=== PATIENT | male | born 1945 | race Caucasian/White ===

== ENCOUNTER 2017-01-15 18:51 | Observation (INO) | payer OTHER, BC ==
[2017-01-15 19:08] VITALS: BMI 27.9
--- NOTE | 2017-01-15 20:00 | PDOC ---
History of Present Illness - General Chief Complaint: Head/Neck problem Stated Complaint: BUMP TO HEAD Time Seen by Provider: 01/15/17 19:52 History Source: Patient, Spouse Exam Limitations: No Limitations - History of Present Illness Initial Comments: 01/15/17 20:06 Patient was at [employer] today, and walked into glass wall sustaining a contusion and superficial abrasion to his left mid for head. There was no LOC, patient continued to watch the performance, used ice pack which helped resolve much of the swelling, and came now approximately 6 hours later for evaluation of head injury. Patient takes an aspirin, and had some questionable liver issues that is resolving. Denies mental status changes, denies any other injury. was with patient states his behavior has been unchanged Timing/Duration: 4-6 hours Severity: mild, moderate Past History - Travel Traveled outside of the country in the last 30 days: No Close contact w/someone who was outside of country & ill: No - Past Medical History Allergies/Adverse Reactions: Allergies Allergy/AdvReac Type Severity Reaction Status Date / Time No Known Allergies Allergy Verified 01/15/17 18:58 Home Medications: Ambulatory Orders Cholecalciferol (Vitamin D3) [Vitamin D3 -] 1,000 unit PO DAILY 08/07/15 Fenofibrate Nanocrystallized [Tricor] 145 mg PO DAILY 08/07/15 Tadalafil [Cialis] 20 mg PO DAILY 08/07/15 Pantoprazole Sodium [Protonix -] 40 mg PO DAILY #30 tablet.ec 08/10/15 Anemia: No Asthma: No Cancer: No Cardiac Disorders: Yes (MITRAL VALVE REPAIR) CVA: No COPD: No CHF: No Dementia: No Diabetes: No GI Disorders: Yes (H/O CARRILLO'S ESOPHAGUS,DIAPHRAGMATIC HERNIA,BENIGN NEOPLASM COLON;ULCER/PE) Disorders: No HTN: Yes Hypercholesterolemia: No Liver Disease: Yes (CHRONIC NONALCOHOLIC LIVER DISEASE) Seizures: No Thyroid Disease: No - Surgical History Abdominal Surgery: No Appendectomy: No Cardiac Surgery: Yes (MITRAL VALVE REPAIR) Cholecystectomy: No Lung Surgery: No Neurologic Surgery: No Orthopedic Surgery: Yes (ROTATOR CUFF) - Psycho/Social/Smoking Cessation Hx Anxiety: No Suicidal Ideation: No Smoking History: Never smoked Number of Cigarettes Smoked Daily: 0 Hx Alcohol Use: Yes (OCC) Drug/Substance Use Hx: No Substance Use Type: None Hx Substance Use Treatment: No Review of Systems - Review of Systems Able to Perform ROS?: Yes Is the patient limited Kinyarwanda proficient: Yes Constitutional: Yes: Symptoms Reported, See HPI, Malaise HEENTM: Yes: See HPI. No: Symptoms Reported, Eye Pain (has left pupil irregularity secondary to multiple surgeries and macular degeneration and retinal detachment.), Recent change in vision, Nose Congestion Respiratory: Yes: See HPI. No: Symptoms reported Musculoskeletal: Yes: See HPI. No: Symptoms Reported, Back Pain Neurological: Yes: See HPI. No: Symptoms reported, Headache, Numbness, Paresthesia, Unsteady Gait All Other Systems: Reviewed and Negative *Physical Exam - Vital Signs Last Vital Signs Temp Pulse Resp BP Pulse Ox 98.8 F 76 19 156/95 95 01/15/17 18:58 01/15/17 18:58 01/15/17 18:58 01/15/17 18:58 01/15/17 18:58 - Physical Exam Comments: 01/15/17 20:08 General Appearance: Yes: Nourished, Appropriately Dressed, Apparent Distress, Mild Distress HEENT: positive: EOMI, TMs Normal (no hemotympanum, no drainage from nose or ears, states of skull fracture), Other (superficial abrasion and hematoma to face/ upper left forehead/ no crepitus or stepoff. No orbital pain / crepitus/ no evidence of fracture ). negative: GRAHAM (has irregularity to left pupil by history), Nasal Congestion, Rhinorrhea, Sinus Tenderness Neck: positive: Supple. negative: Tender, Trachea midline Respiratory/Chest: positive: Lungs Clear, Normal Breath Sounds. negative: Chest Tender Cardiovascular: positive: Regular Rate Gastrointestinal/Abdominal: positive: Normal Bowel Sounds, Flat, Soft, Increased Bowel Sounds. negative: Tender, Guarding Musculoskeletal: positive: Normal Inspection ( ). negative: CVA Tenderness, Decreased Range of Motion Extremity: positive: Normal Inspection. negative: Normal Capillary Refill Integumentary: positive: Normal Color, Bruising Neurologic: positive: associate manager affiliate marketing II-XII NML intact, Fully Oriented, Alert, Normal Mood/ Affect, Normal Response, Motor Strength 5/5. negative: Abnormal Cranial NS ED Treatment Course - LABORATORY CBC & Chemistry Diagram: 01/16/17 06:20 01/16/17 00:09 - RADIOLOGY Radiology Studies Ordered: Category Date Time Status HEAD CT WITHOUT CONTRAST [CT] Stat CT Scan 01/15/17 20:00 Ordered Medical Decision Making - Medical Decision Making 01/15/17 22:54 CT report repeated per request of [facility] to visualize frontal are, repeat cont to visualize a questionable area of frontal lobe. Discussed with pateint and need for admit to [facility] to have neuro evaluation/ and repeat twesting in AM> Understands plan, Dr Rodriguez introduced and will proceed with further eval/ treatmetn *DC/Admit/Observation/Transfer Diagnosis at time of Disposition: Head injury due to trauma Qualifiers: Encounter type: initial encounter Qualified Code(s): S09.90XA - Unspecified injury of head, initial encounter - Discharge Dispostion Disposition: HOME Condition at time of disposition: Improved Admit: Yes - Patient Instructions
[2017-01-15 23:29] LABS: BASOPHIL 0.5 % (0-2.0); EOSINOPHIL 2.7 % (0-4.5); MCH 27.8 pg (25.7-33.7); MEAN CELL VOLUME 84.1 fl (80-96); MEAN PLT VOLUME 8.4 fl (7.5-11.1); NEUTROPHILS 59.6 % (42.8-82.8); PLATELET COUNT 200 K/MM3 (134-434); WHITE BLOOD COUNT 8.2 K/mm3 (4.0-10.0)
[2017-01-15 23:34] LABS: URINE APPEARANCE CLEAR; URINE BILIRUBIN NEGATIVE (NEGATIVE); URINE BLOOD NEGATIVE (NEGATIVE); URINE COLOR LTYELLOW; URINE GLUCOSE (UA) NEGATIVE (NEGATIVE); URINE KETONE NEGATIVE (NEGATIVE); URINE LEUK ESTERASE NEGATIVE (NEGATIVE); URINE NITRITE NEGATIVE (NEGATIVE); URINE PROTEIN NEGATIVE (NEGATIVE); URINE UROBILINOGEN NEGATIVE E.U./dl (0.2-1.0)
[2017-01-15 23:42] LABS: INR 1.05 (0.82-1.09); PROTHROMBIN TIME (PATIENT) 11.6 SEC (9.98-11.88)
[2017-01-16 01:10] LABS: ALBUMIN 3.9 g/dl (3.4-5.0); CALCIUM 8.7 mg/dL (8.5-10.1)
[2017-01-16 01:19] LABS: BILIRUBIN,TOTAL 0.4 mg/dL (0.2-1.0); COCKROFT - GAULT 68.59; CREATININE 1.2 mg/dL (0.7-1.3); TOT PROT 6.8 g/dl (6.4-8.2)
--- NOTE | 2017-01-16 02:13 | PDOC ---
*Physical Exam - Vital Signs Last Vital Signs Temp Pulse Resp BP Pulse Ox 98.8 F 76 19 156/95 95 01/15/17 18:58 01/15/17 18:58 01/15/17 18:58 01/15/17 18:58 01/15/17 18:58 ED Treatment Course - LABORATORY CBC & Chemistry Diagram: 01/15/17 23:04 01/16/17 00:09 - ADDITIONAL ORDERS Additional order review: Laboratory Results 01/16/17 01/15/17 01/15/17 00:09 23:10 23:04 INR Sodium 143 Potassium 4.5 Chloride 108 H Carbon Dioxide 22 Anion Gap 13 BUN 25 H D Creatinine 1.2 Creat Clearance w eGFR 59.35 Random Glucose 126 H Calcium 8.7 Total Bilirubin 0.4 AST 75 H ALT 56 Alkaline Phosphatase 90 Total Protein 6.8 Albumin 3.9 Urine Color Ltyellow Urine Appearance Clear Urine pH 5.0 Urine Protein Negative Urine Glucose (UA) Negative Urine Ketones Negative Urine Blood Negative Urine Nitrite Negative Urine Bilirubin Negative Urine Urobilinogen Negative Ur Leukocyte Esterase Negative Blood Type O POSITIVE Antibody Screen Negative 01/15/17 01/15/17 23:04 23:04 INR 1.05 Sodium Cancelled Potassium Cancelled Chloride Cancelled Carbon Dioxide Cancelled Anion Gap Cancelled BUN Cancelled Creatinine Cancelled Creat Clearance w eGFR Cancelled Random Glucose Cancelled Calcium Cancelled Total Bilirubin Cancelled AST Cancelled ALT Cancelled Alkaline Phosphatase Cancelled Total Protein Cancelled Albumin Cancelled Urine Color Urine Appearance Urine pH Urine Protein Urine Glucose (UA) Urine Ketones Urine Blood Urine Nitrite Urine Bilirubin Urine Urobilinogen Ur Leukocyte Esterase Blood Type Antibody Screen 01/15/17 23:04 RBC 5.49 MCV 84.1 MCHC 33.0 RDW 17.0 H D MPV 8.4 Neutrophils % 59.6 Lymphocytes % 29.1 Monocytes % 8.1 Eosinophils % 2.7 Basophils % 0.5 - RADIOLOGY Radiology Studies Ordered: Category Date Time Status CHEST X-RAY PORTABLE* [RAD] Stat Radiology 01/16/17 00:19 Taken Medical Decision Making - Medical Decision Making 01/16/17 02:06 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 This is at the same level as the left frontal scalp hematoma pt has no headache,no focal neuro deficits. He is ambulating with ease conversant PMH kowalski' s esophagus,nonalcoholic liver disease meds asa 81mg,vit D, tricor 145, cialis,protonix cbc -normal platelets comp-gkucose 126, ast 75 ,cr=1.2 case discussed hospitalist and pt will be ADMITTED TO [facility] for MRI in morning, neuro checks - *DC/Admit/Observation/Transfer Diagnosis at time of Disposition: Head injury due to trauma Qualifiers: Encounter type: initial encounter Qualified Code(s): S09.90XA - Unspecified injury of head, initial encounter - Discharge Dispostion Condition at time of disposition: Stable Admit: Yes - Referrals - Post Discharge Activity
--- NOTE | 2017-01-16 02:30 | PN ---
<Cynthia De León - Last Filed: 01/16/17 02:29> Teaching Attending Note Name of Resident: Estrella Quesada ATTENDING PHYSICIAN STATEMENT I saw and evaluated the patient. I reviewed the resident's note and discussed the case with the resident. I agree with the resident's findings and plan as documented. SUBJECTIVE: OBJECTIVE: ASSESSMENT AND PLAN: <Ignacia Hua - Last Filed: 01/16/17 04:20> Teaching Attending Note ATTENDING PHYSICIAN STATEMENT I saw and evaluated the patient. I reviewed the resident's note and discussed the case with the resident. I agree with the resident's findings and plan as documented. SUBJECTIVE: 74 yo M with a PMHx of HLD, mitral valve repair, kowalski's esophagus, non- alcoholic liver disease who presents after walking into a glass wall earlier today. Patient presented six hours after initial injury. Denies headache or changes in vision. Patient notes that his L eye fixed and dilated from previous tennis accident unrelated to todays trauma. OBJECTIVE: Last Vital Signs Temp Pulse Resp BP Pulse Ox 98.8 F 76 19 156/95 95 01/15/17 18:58 01/15/17 18:58 01/15/17 18:58 01/15/17 18:58 01/15/17 18:58 GENERAL: Awake, alert, and fully oriented, in no acute distress HEENT: L pupil fixed and dilated at 2 mm. R pupil reactive to light. R orbital hematoma. R forehead 1 mm abrasion. Moist mucosa. No JVD LUNGS: No distress, speaks full sentences, clear to auscultation bilaterally HEART: Regular rate and rhythm, normal S1 and S2, no murmurs, rubs or gallops, peripheral pulses normal and equal bilaterally. ABDOMEN: Soft, nontender, normoactive bowel sounds. No guarding, no rebound. No masses EXTREMITIES: Normal inspection, Normal range of motion, no edema. No clubbing or Cyanosis. NEUROLOGICAL: Cranial nerves II through XII grossly intact. Normal speech, normal gait, no focal sensorimotor deficits SKIN: Warm, Dry, normal turgor, no rashes or lesions noted. CBCD WBC 8.2 K/mm3 (4.0-10.0) D 01/15/17 23:04 RBC 5.49 M/mm3 (4.00-5.60) 01/15/17 23:04 Hgb 15.2 GM/dL (11.7-16.9) D 01/15/17 23:04 Hct 46.2 % (35.4-49) 01/15/17 23:04 MCV 84.1 fl (80-96) 01/15/17 23:04 MCHC 33.0 g/dl (32.0-35.9) 01/15/17 23:04 RDW 17.0 % (11.9-15.9) H D 01/15/17 23:04 Plt Count 200 K/MM3 (134-434) 01/15/17 23:04 MPV 8.4 fl (7.5-11.1) 01/15/17 23:04 CMP Sodium 143 mmol/L (136-145) 01/16/17 00:09 Potassium 4.5 mmol/L (3.5-5.1) 01/16/17 00:09 Chloride 108 mmol/L (98-107) H 01/16/17 00:09 Carbon Dioxide 22 mmol/L (21-32) 01/16/17 00:09 Anion Gap 13 (8-16) 01/16/17 00:09 BUN 25 mg/dL (7-18) H D 01/16/17 00:09 Creatinine 1.2 mg/dL (0.7-1.3) 01/16/17 00:09 Creat Clearance w eGFR 59.35 (>60) 01/16/17 00:09 Calcium 8.7 mg/dL (8.5-10.1) 01/16/17 00:09 Total Bilirubin 0.4 mg/dL (0.2-1.0) 01/16/17 00:09 AST 75 U/L (15-37) H 01/16/17 00:09 ALT 56 U/L (12-78) 01/16/17 00:09 Alkaline Phosphatase 90 U/L (45-117) 01/16/17 00:09 Total Protein 6.8 g/dl (6.4-8.2) 01/16/17 00:09 Albumin 3.9 g/dl (3.4-5.0) 01/16/17 00:[address] 8:11 PM FINDINGS: 1. There is a small focus of increased density in the left frontal region (image 16, series 36 axial images). A small focus of subarachnoid hemorrhage cannot be excluded. This is at the same level of the left frontal scalp hematoma. Repeat imaging through this region with thin slices (3 mm) may be helpful for further evaluation. Alternatively repeat imaging with a different angulation of the CT gantry may be helpful. There is no evidence of significant mass effect. There are chronic lacunar infarcts in the right basal ganglia. 2. Ventricular size is concordant with the degree of atrophy. 3. The visualized portions of the orbits, paranasal and mastoid sinuses are unremarkable. 4. No evidence of fracture. 5. Left frontal scalp hematoma. Head CT 9:41 PM FINDINGS: 1. Again noted is the small focus of increased density in the left frontal region (image 22, series of 37 axial images and image 13, series of 32 sagittal reformatted images). A small focus of intracranial hemorrhage in this region cannot entirely be excluded. This is at the same level as the left frontal scalp hematoma. There is no other evidence of intracranial hemorrhage. There is a lacunar infarct in the right basal ganglia that appears to be chronic. 2. Ventricular size is concordant with the degree of atrophy. 3. The visualized portions of the orbits, paranasal and mastoid sinuses are unremarkable. 4. No evidence of fracture. 5. Left frontal scalp hematoma ASSESSMENT AND PLAN: 74 yo M with a PMHx of HLD, mitral valve repair, kowalski's esophagus, chronic alcoholic liver disease presents after walking into glass found to have possible small intracranial hemorrhage. 1.) Head injury -? intracranial hemorrhage not clear on CT -MRI brain in AM -Neurology consult -Repeat CBC -Coags -Type and screen DVT ppx -Low risk -Ambulate Place in observation Documentation is prepared by Ignacia Hua acting as medical equipment sales for Cynthia De León D.O.
--- NOTE | 2017-01-16 02:44 | HP ---
CHIEF COMPLAINT: " i walked into glass door" PCP: HISTORY OF PRESENT ILLNESS: This is a 71 yo M with PMH of barrets esophagus, diaphragmatic hernia, nonalcoholic liver disease f/u by outpatient gi, colon polyps, mitral valse prolapse s/p ring repair and rotator cuff surgery, who presents after having walked through a glass door while at [employer]. He suffered a mild forehead abrasion/contusion, w/o LOC or fall. He continued enjoying the performance and appeared at [facility] for check up 6 hours after the incident. He states the accident occurred because the rodrigo vas very clean and transparent and denies prodrome of confusion, dizziness, loc or loss of motor function. He currently denies h/a, n/v. He denies chest pain, palpitations, sob, cought, and pain, diarrhea, dysuria. Of note, he suffered trauma to L eye causing vision impairment and fixed pupil. ER course was notable for: (1)labs (2)CXR (3)Head CT Recent Travel: denies PAST MEDICAL HISTORY: as above PAST SURGICAL HISTORY: as above Social History: lives at home with family Smoking: denies Alcohol:1 drink/week Drugs: denies Family History: HTN Allergies No Known Allergies Allergy (Verified 01/15/17 18:58) HOME MEDICATIONS: Home Medications Medication Instructions Recorded Aspirin [Ecotrin] 81 mg PO DAILY 08/07/15 Cholecalciferol (Vitamin D3) 1,000 unit PO DAILY 08/07/15 [Vitamin D3 -] Fenofibrate Nanocrystallized 145 mg PO DAILY 08/07/15 [Tricor] Tadalafil [Cialis] 20 mg PO DAILY 08/07/15 Pantoprazole Sodium [Protonix -] 40 mg PO DAILY #30 tablet.ec 08/10/15 REVIEW OF SYSTEMS CONSTITUTIONAL: Absent: fever, chills, diaphoresis, generalized weakness HEENT: Absent: rhinorrhea, nasal congestion, throat pain CARDIOVASCULAR: Absent: chest pain, syncope, palpitations, irregular heart rate, lightheadedness , peripheral edema RESPIRATORY: Absent: cough, shortness of breath GASTROINTESTINAL: Absent: abdominal pain, abdominal distension, nausea, vomiting, diarrhea, constipation GENITOURINARY: Absent: dysuria MUSCULOSKELETAL: Absent: back pain, neck pain SKIN: Absent: rash, itching, pallor HEMATOLOGIC/IMMUNOLOGIC: Absent: easy bleeding, easy bruising ENDOCRINE: Absent: unexplained weight gain, unexplained weight loss, heat intolerance, cold intolerance NEUROLOGIC: Absent: headache, focal weakness or paresthesias, dizziness, unsteady gait, seizure, mental status changes, bladder or bowel incontinence PSYCHIATRIC: Absent: anxiety PHYSICAL EXAMINATION Vital Signs - 24 hr 01/15/17 18:58 Temperature 98.8 F Pulse Rate 76 Respiratory 19 Rate Blood Pressure 156/95 O2 Sat by Pulse 95 Oximetry (%) GENERAL: Awake, alert, and fully oriented, in no acute distress. HEAD: Normal with no signs of trauma. EYES: R pupil round and reactive to light, L pupil fixed due to old trauma, extraocular movements intact, sclera anicteric, L eye syrrounding echymosess and mildly injected conjunctiva. No lid lag. EARS, NOSE, THROAT: Moist mucous membranes. NECK: supple without JVD LUNGS: Breath sounds equal, clear to auscultation bilaterally HEART: Regular rate and rhythm, normal S1 and S2 ABDOMEN: Soft, nontender, not distended, normoactive bowel sounds, No hepatomegaly MUSCULOSKELETAL: No CVA tenderness. UPPER EXTREMITIES: 2+ pulses, warm, well-perfused. LOWER EXTREMITIES: 2+ pulses, warm, well-perfused. No calf tenderness. No peripheral edema. NEUROLOGICAL: Cranial nerves II-XII intact. Normal speech. sensation intact. strentght 5/5 in all extremities, 1+ brachial reflexes b/l PSYCHIATRIC: Cooperative. Good eye contact. Appropriate mood and affect. SKIN: Warm, dry, small abrasion/contusion on forehead above L eye with echymosis over L eyelid Laboratory Results - last 24 hr 01/15/17 01/15/17 01/15/17 23:04 23:04 23:04 WBC 8.2 D RBC 5.49 Hgb 15.2 D Hct 46.2 MCV 84.1 MCHC 33.0 RDW 17.0 H D Plt Count 200 MPV 8.4 Neutrophils % 59.6 Lymphocytes % 29.1 Monocytes % 8.1 Eosinophils % 2.7 Basophils % 0.5 INR 1.05 Sodium Cancelled Potassium Cancelled Chloride Cancelled Carbon Dioxide Cancelled Anion Gap Cancelled BUN Cancelled Creatinine Cancelled Creat Clearance w eGFR Cancelled Random Glucose Cancelled Calcium Cancelled Total Bilirubin Cancelled AST Cancelled ALT Cancelled Alkaline Phosphatase Cancelled Total Protein Cancelled Albumin Cancelled Urine Color Urine Appearance Urine pH Urine Protein Urine Glucose (UA) Urine Ketones Urine Blood Urine Nitrite Urine Bilirubin Urine Urobilinogen Ur Leukocyte Esterase Blood Type Antibody Screen 01/15/17 01/15/17 01/16/17 23:04 23:10 00:09 WBC RBC Hgb Hct MCV MCHC RDW Plt Count MPV Neutrophils % Lymphocytes % Monocytes % Eosinophils % Basophils % INR Sodium 143 Potassium 4.5 Chloride 108 H Carbon Dioxide 22 Anion Gap 13 BUN 25 H D Creatinine 1.2 Creat Clearance w eGFR 59.35 Random Glucose 126 H Calcium 8.7 Total Bilirubin 0.4 AST 75 H ALT 56 Alkaline Phosphatase 90 Total Protein 6.8 Albumin 3.9 Urine Color Ltyellow Urine Appearance Clear Urine pH 5.0 Urine Protein Negative Urine Glucose (UA) Negative Urine Ketones Negative Urine Blood Negative Urine Nitrite Negative Urine Bilirubin Negative Urine Urobilinogen Negative Ur Leukocyte Esterase Negative Blood Type O POSITIVE Antibody Screen Negative ASSESSMENT/PLAN: This is a 71 yo M with PMH of barrets esophagus, diaphragmatic hernia, nonalcoholic liver disease f/u by outpatient gi, colon polyps, mitral valse prolapse s/p ring repair and rotator cuff surgery, who presents after having walked through a glass door while at [employer] [employer]. 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 -CT head revealed questionable are in frontal cortex -MRI brain w/o contrast pending -Neuro consult -neuro checks q2 hr until 830 am, then q4h Barrets esophagus -ppi Agre related ppx -tricor -Hold asa 81 FEN No IVF Lytes stable Na restricted diet SCD Dispo: obs in med magen Problem List - Problem (1) Head injury due to trauma Code(s): S09.90XA - UNSPECIFIED INJURY OF HEAD, INITIAL ENCOUNTER Qualifiers: Encounter type: initial encounter Qualified Code(s): S09.90XA - Unspecified injury of head, initial encounter (2) Superficial injury of head Code(s): S00.90XA - UNSP SUPERFICIAL INJURY OF UNSP PART OF HEAD, INIT ENCNTR Qualifiers: Encounter type: initial encounter Qualified Code(s): S00.90XA - Unspecified superficial injury of unspecified part of head, initial encounter Visit type - Emergency Visit Emergency Visit: Yes ED Registration Date: 01/16/17 Care time: The patient presented to the Emergency Department on the above date and was hospitalized for further evaluation of their emergent condition. - New Patient This patient is new to me today: Yes Date on this admission: 01/16/17 - Critical Care Critical Care patient: No
[2017-01-16 06:33] LABS: MCH 27.1 pg (25.7-33.7); MCHC 31.9 g/dl (32.0-35.9); MEAN PLT VOLUME 8.4 fl (7.5-11.1); PLATELET COUNT 194 K/MM3 (134-434); RDW 17.2 % (11.9-15.9)
[2017-01-16] MEDS ORDERED: TAMSULOSIN HCL 0.4 MG CAP.ER.24H (FP) PO SCH (08:30)
[2017-01-16] MEDS ORDERED: PANTOPRAZOLE 40 MG TABLET (FP) PO SCH (10:00)
[2017-01-16] MEDS ORDERED: FENOFIBRIC ACID 135 MG CAP PO SCH (10:00)
[2017-01-16] MEDS ORDERED: CHOLECALCIFEROL (VITAMIN D3) 1,000 UNIT TABLET (FP) PO SCH (10:00)
[2017-01-16] MEDS ORDERED: PATIENT'S OWN MEDICATION (NON-FORMULARY) (Tadalafil [Cialis] 20 MG) PO SCH (10:00)
[2017-01-16] MEDS ORDERED: PANTOPRAZOLE 40 MG TABLET (FP) ONE (12:32)
--- NOTE | 2017-01-16 13:01 | EKG ---
Test Reason : Blood Pressure : / mmHG Vent. Rate : 066 BPM Atrial Rate : 066 BPM P-R Int : 146 ms QRS Dur : 086 ms QT Int : 416 ms P-R-T Axes : 021 -14 034 degrees QTc Int : 436 ms NORMAL SINUS RHYTHM MINIMAL VOLTAGE CRITERIA FOR LVH, MAY BE NORMAL VARIANT INFERIOR INFARCT , AGE UNDETERMINED ABNORMAL ECG NO PREVIOUS ECGS AVAILABLE Confirmed by LIENE LAROSE MD ([id number]) on 01/16/2017 1:01:06 PM Referred By: Confirmed By:ILENE LAROSE MD
--- NOTE | 2017-01-16 19:24 | DS ---
Physical Exam: SUBJECTIVE: Patient seen and examined at bedside in ED. OBJECTIVE: Vital Signs Period Temp Pulse Resp BP Sys/Coley Pulse Ox Last 24 Hr 98.6 F 70-72 18-18 135-149/64-70 99-99 PHYSICAL EXAM GENERAL: The patient is awake, alert, and fully oriented, in no acute distress. HEAD: Left periorbital ecchymosis EYES: PERRL, extraocular movements intact, sclera anicteric, conjunctiva clear. LUNGS: Breath sounds equal, clear to auscultation bilaterally, no wheezes, no crackles, no accessory muscle use. HEART: Regular rate and rhythm, S1, S2 without murmur, rub or gallop. ABDOMEN: Soft, nontender, nondistended, normoactive bowel sounds, no guarding, no rebound, no hepatosplenomegaly, no masses. EXTREMITIES: 2+ pulses, warm, well-perfused, no edema. NEUROLOGICAL: Cranial nerves II through XII grossly intact. Normal speech, steady gait. CBCD WBC 7.0 K/mm3 (4.0-10.0) 01/16/17 06:20 RBC 5.29 M/mm3 (4.00-5.60) 01/16/17 06:20 Hgb 14.4 GM/dL (11.7-16.9) 01/16/17 06:20 Hct 45.0 % (35.4-49) 01/16/17 06:20 MCV 85.0 fl (80-96) 01/16/17 06:20 MCHC 31.9 g/dl (32.0-35.9) L 01/16/17 06:20 RDW 17.2 % (11.9-15.9) H 01/16/17 06:20 Plt Count 194 K/MM3 (134-434) 01/16/17 06:20 MPV 8.4 fl (7.5-11.1) 01/16/17 06:20 CMP Sodium 143 mmol/L (136-145) 01/16/17 00:09 Potassium 4.5 mmol/L (3.5-5.1) 01/16/17 00:09 Chloride 108 mmol/L (98-107) H 01/16/17 00:09 Carbon Dioxide 22 mmol/L (21-32) 01/16/17 00:09 Anion Gap 13 (8-16) 01/16/17 00:09 BUN 25 mg/dL (7-18) H D 01/16/17 00:09 Creatinine 1.2 mg/dL (0.7-1.3) 01/16/17 00:09 Creat Clearance w eGFR 59.35 (>60) 01/16/17 00:09 Calcium 8.7 mg/dL (8.5-10.1) 01/16/17 00:09 Total Bilirubin 0.4 mg/dL (0.2-1.0) 01/16/17 00:09 AST 75 U/L (15-37) H 01/16/17 00:09 ALT 56 U/L (12-78) 01/16/17 00:09 Alkaline Phosphatase 90 U/L (45-117) 01/16/17 00:09 Total Protein 6.8 g/dl (6.4-8.2) 01/16/17 00:09 Albumin 3.9 g/dl (3.4-5.0) 01/16/17 00:09 HOSPITAL COURSE: Date of Admission:01/16/17 Date of Discharge: 01/16/17 Initial hospital course Patient is a 74 year-old male with a PMH of HLD, mitral valve repair, Angelo's esophagus, and non-alcoholic liver disease who presented to the ED after walking into a glass wall earlier in the day at [employer]. He stayed for the performance and presented to the ED six hours after initial injury. He denied headache,changes in vision, nausea, or vomiting. He denied LOC. Patient noted that his left eye is fixed and dilated from previous tennis accident unrelated to the day's trauma. Subsequent hospital course Contusion left forehead Left periorbital ecchymosis --CT imaging of head x 2 negative for signs of bleeding --MRI brain: generalized volume loss with multiple foci of a small vessel infarction in the periventricular white matter and basal ganglia; no mass lesion , acute infarction, or hemorrhage --seen and evaluated by neurology, Dr. Owen Minutes to complete discharge: 35 Discharge Summary Reason For Visit: TRAUMATIC INJURY OF HEAD Current Active Problems Head injury due to trauma (Acute) Condition: Improved - Instructions Diet, Activity, Other Instructions: You should follow up with your primary care provider within 48 hours of your discharge. Return to the emergency department for any new or worsening symptoms. Referrals: Claudy Feliciano MD [Staff Physician] - 1 Week Amaury Bear MD [Staff Physician] - 1 Week Disposition: HOME - Home Medications Comprehensive Discharge Medication List: Ambulatory Orders Cholecalciferol (Vitamin D3) [Vitamin D3 -] 1,000 unit PO DAILY 08/07/15 Fenofibrate Nanocrystallized [Tricor] 145 mg PO DAILY 08/07/15 Tadalafil [Cialis] 20 mg PO DAILY 08/07/15 Pantoprazole Sodium [Protonix -] 40 mg PO DAILY #30 tablet.ec 08/10/15 This patient is new to me today: Yes Date on this admission: 01/17/17 Emergency Visit: Yes ED Registration Date: 01/16/17 Care time: The patient presented to the Emergency Department on the above date and was hospitalized for further evaluation of their emergent condition. Critical Care patient: No - Discharge Referral Referred to [facility] No
--- NOTE | 2017-01-16 19:45 | CON.NEURO ---
Consult Consult Specialty:: Neuro Reason for Consultation:: intracranial bleed - Alcohol/Substance Use Hx Alcohol Use: Yes (OCC) - Smoking History Smoking history: Never smoked Aproximately how many cigarettes per day: 0 Home Medications - Allergies Allergies/Adverse Reactions: Allergies Allergy/AdvReac Type Severity Reaction Status Date / Time No Known Allergies Allergy Verified 01/15/17 18:58 - Home Medications Home Medications: Ambulatory Orders Cholecalciferol (Vitamin D3) [Vitamin D3 -] 1,000 unit PO DAILY 08/07/15 Fenofibrate Nanocrystallized [Tricor] 145 mg PO DAILY 08/07/15 Tadalafil [Cialis] 20 mg PO DAILY 08/07/15 Pantoprazole Sodium [Protonix -] 40 mg PO DAILY #30 tablet.ec 08/10/15 Physical Exam-Neuro Vital Signs: Vital Signs Temperature 98.6 F 01/16/17 08:34 Pulse Rate 70 01/16/17 17:45 Respiratory Rate 18 01/16/17 17:45 Blood Pressure 135/64 01/16/17 17:45 O2 Sat by Pulse Oximetry (%) 99 01/16/17 17:45 Labs: CBC, BMP 01/16/17 06:20 INR, PTT INR 1.05 (0.82-1.09) 01/15/17 23:04 NIH Stroke Scale - Total Score NIH Stroke Scale Score: 0 Imaging - Results Cat Scan: Report Reviewed Assessment/Plan CC There is suspicious of ? frontal hematoma 71 year old male history of baldev esophagus, reflux, and fatty liver had mitral valve prolapse surgery in past. He only takes aspirin and ppi. He ran into glass and hit his head to glass and had black eye to left eye . Later he had ct scan of brain and thought to have small hematoma in brain and later ct head was read by radiologist as normal. there was no blood in brain. 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 hematoma but later report by neuro radiologist did not confirm, and there is no fracture . Patient is feeling fine, I doubt there is blood in brain and he just had mri ofbrain and report is pending In my opinion he can bd discharged and follow outpatient , will speak to PMD Thanking you so much Charlie Owen md [facility] [phone]
[2017-01-16 20:43] VITALS: BP 142/95; PULSE 64; TEMP 97.9
== END 2017-01-16 22:36 | disposition home or self-care (01) ==
LOC: JER 18:51 → JERBED 01-16 02:14 → J8W 01-16 18:55
PROVIDERS: ADMIT Internal Medicine; ATTEND Nurse Practitioner Acute Care
DX: S09.90XA Unspecified injury of head, initial encounter (principal); S00.90XA Unspecified superficial injury of unspecified part of head, initial encounter; W22.01XA Walked into wall, initial encounter; Y93.01 Activity, walking, marching and hiking; Y92.89 Other specified places as the place of occurrence of the external cause; E78.5 Hyperlipidemia, unspecified; K76.89 Other specified diseases of liver; Z79.82 Long term (current) use of aspirin; Z87.19 Personal history of other diseases of the digestive system
CPT/HCPCS: 36415; 70450-TC; 70551-TC; 71010-TC; 80053; 81003; 85025; 85027; 85610; 86850; 86900; 86901; 93005; 93010; 99285-25; G0378

== ENCOUNTER 2018-08-03 09:44 | Day surgery (SDC) | payer OTHER, BC ==
[2018-08-03 12:22] VITALS: TEMP 97.6
[2018-08-03 13:25] VITALS: BP 138/82; PULSE 63
--- NOTE | 2018-08-06 18:16 | PATH ---
Surgical Pathology Report Patient Name: BIBI HOWARD [facility]. Rec. #: [id number] /Age/Gender: 1945 (Age: 72) / M Account: [id number] Location: U-ENDOSCOPY Taken: 08/03/2018 Received: 08/03/2018 Reported: 08/06/2018 Physicians: Cate Nelson M.D. Specimen(s) Received A: BX ANTRUM B: BX GASTRIC BODY POLYP C: BX ESOPHAGUS @ 38 CM. D: BX ESOPHAGUS @ 35 CM. E: BX ESOPHAGUS @ 34 CM. F: BX SIGMOID POLYP Clinical History Carrillo's surveillance, serrated adenoma surveillance Postoperative diagnosis: Hiatal hernia, GERD, gastric body polyp, sigmoid polyp, diverticulosis Final Diagnosis A. STOMACH, ANTRUM, BIOPSY: GASTRIC ANTRAL MUCOSA WITH MILD CHRONIC GASTRITIS. IMMUNOHISTOCHEMICAL STAIN FOR H. PYLORI IS NEGATIVE. B. GASTRIC BODY, POLYP, BIOPSY: CONSISTENT WITH FUNDIC GLAND POLYP. IMMUNOHISTOCHEMICAL STAIN FOR H. PYLORI IS NEGATIVE. C. CARRILLO'S ESOPHAGUS, 38 CM, BIOPSY: SQUAMOCOLUMNAR MUCOSA WITH MILD ACUTE AND CHRONIC INFLAMMATION AND CHANGES OF MODERATE TO SEVERE REFLUX ESOPHAGITIS. INTESTINAL METAPLASIA PRESENT CONSISTENT WITH CARRILLO'S ESOPHAGUS. NO DYSPLASIA IDENTIFIED. D. CARRILLO'S ESOPHAGUS, 35 CM, BIOPSY: SQUAMOCOLUMNAR MUCOSA WITH MILD ACUTE AND CHRONIC INFLAMMATION AND CHANGES OF MODERATE TO SEVERE REFLUX ESOPHAGITIS. INTESTINAL METAPLASIA PRESENT CONSISTENT WITH CARRILLO'S ESOPHAGUS. NO DYSPLASIA IDENTIFIED. E. CARRILLO'S ESOPHAGUS, 34 CM, BIOPSY: SQUAMOCOLUMNAR MUCOSA WITH MODERATE ACUTE AND CHRONIC INFLAMMATION AND CHANGES OF MODERATE TO SEVERE REFLUX ESOPHAGITIS. INTESTINAL METAPLASIA PRESENT CONSISTENT WITH CARRILLO'S ESOPHAGUS. NO DYSPLASIA IDENTIFIED. F. SIGMOID COLON, POLYP, BIOPSY HYPERPLASTIC POLYP. Electronically Signed Ignacia Bowen M.D. Gross Description A. Received in formalin, labeled "biopsy antrum" is a carson, irregular portion of soft tissue measuring 0.6 cm. in greatest dimension. The specimen is submitted in toto in one cassette. B. Received in formalin, labeled "biopsy gastric body" is a carson, irregular portion of soft tissue measuring 0.5 cm. in greatest dimension. The specimen is submitted in toto in one cassette. C. Received in formalin, labeled "biopsy Carrillo's esophagus" are 3 carson, irregular portions of soft tissue ranging from 0.3-0.6 cm. in greatest dimension. The specimens are submitted in toto in one cassette. D. Received in formalin, labeled "biopsy Carrillo's esophagus at 35 cm" are 3 carson, irregular portions of soft tissue ranging from 0.2-0.3 cm. in greatest dimension. The specimens are submitted in toto in one cassette. E. Received in formalin, labeled "Carrillo's esophagus at 34 cm" is a carson, irregular portion of soft tissue measuring 0.3 cm. in greatest dimension. The specimen is submitted in toto in one cassette. F. Received in formalin, labeled "biopsy sigmoid polyp" are 3 carson, irregular portions of soft tissue ranging from 0.1-0.3 cm. in greatest dimension. The specimens are submitted in toto in one cassette. 08/03/201808/03/2018
== END 2018-08-03 13:26 | disposition home or self-care (01) ==
LOC: JASU-ENDO 09:44
PROVIDERS: ATTEND Internal Medicine Gastroenterology
PROC: 0DB38ZX Excision of Lower Esophagus, Via Natural or Artificial Opening Endoscopic, Diagnostic (ICD-10-PCS; 2018-08-03)
PROC: 0DB68ZX Excision of Stomach, Via Natural or Artificial Opening Endoscopic, Diagnostic (ICD-10-PCS; 2018-08-03)
PROC: 0DB28ZX Excision of Middle Esophagus, Via Natural or Artificial Opening Endoscopic, Diagnostic (ICD-10-PCS; 2018-08-03)
PROC: 0DBN8ZX Excision of Sigmoid Colon, Via Natural or Artificial Opening Endoscopic, Diagnostic (ICD-10-PCS; principal; 2018-08-03 10:30)
DX: Z86.010 Personal history of colon polyps (principal); D12.5 Benign neoplasm of sigmoid colon; K57.30 Diverticulosis of large intestine without perforation or abscess without bleeding; K64.8 Other hemorrhoids; K55.20 Angiodysplasia of colon without hemorrhage; K22.70 Barrett's esophagus without dysplasia; K21.0 Gastro-esophageal reflux disease with esophagitis; K44.9 Diaphragmatic hernia without obstruction or gangrene
CPT/HCPCS: 88305-TC; 88342-TC